=== PATIENT | female | born 1985 | race Caucasian/White ===

== ENCOUNTER 2021-03-11 18:12 | Emergency (ER) | payer MEDICAID ==
[~2021-03-11] VITALS: Ht 160 cm; Wt 95.0 kg
[~2021-03-11 18:12] MED LIST: TRAZ-252 PO; VENL37.55 PO
[2021-03-11 18:40] VITALS: BP 178/94
== END 2021-03-11 19:36 | disposition home or self-care (01) ==
LOC: ER 18:12
DX: U07.1 COVID-19 (principal); R06.82 Tachypnea, not elsewhere classified; R03.0 Elevated blood-pressure reading, without diagnosis of hypertension; K21.9 Gastro-esophageal reflux disease without esophagitis
CPT/HCPCS: 99283; C9803; U0003; U0005

== ENCOUNTER 2021-10-23 13:49 | Emergency (ER) | payer MEDICAID ==
[~2021-10-23] VITALS: Ht 160 cm; Wt 91.0 kg
[2021-10-23 16:52] VITALS: BP 126/64
== END 2021-10-23 17:00 | disposition home or self-care (01) ==
LOC: ER 16:47
DX: H61.21 Impacted cerumen, right ear (principal)
CPT/HCPCS: 99282

== ENCOUNTER 2023-01-03 21:03 | Emergency (ER) | payer MEDICAID ==
[~2023-01-03] VITALS: Ht 160 cm; Wt 95.0 kg
[2023-01-03 21:06] VITALS: BP 147/99; RESP 18; O2SAT 98
[2023-01-03 21:09] VITALS: PULSE 80
[2023-01-03] MEDS ORDERED: ACETAMINOPHEN 325MG TABLET PO ONE (23:15)
[2023-01-03 23:47] VITALS: TEMP 98.3
[2023-01-03 23:59] LABS: BASOPHILS % 0.3 % (0.0-2.0); EOSINOPHILS % 0.4 % (0.0-5.0); HEMOGLOBIN. 12.1 g/dL (12.0-16.0); LYMPHOCYTES % 26.7 % (20.0-50.0); MEAN CORPUSCULAR HEMOGLOBIN 30.3 pg (28.0-32.0); MEAN CORPUSCULAR HGB CONC 33.7 g/dL (31.0-37.0); MEAN PLATELET VOLUME 7.3 fl (7.4-10.4); MONOCYTES % 5.5 % (2.0-8.0); NEUTROPHILS % 67.1 % (40.0-76.0); PLATELET 244 x1000/uL (130-400); WHITE BLOOD COUNT 7.5 x1000/uL (4.5-11.0)
[2023-01-04 00:10] LABS: CHLORIDE 106 mEq/L (98-107); INDEX HEMOLYSI 1 (1-3); INDEX ICTERIC 1 (1-4); INDEX LIPEMIC 1 (1-3); POTASSIUM 3.6 mEq/L (3.5-5.1); SODIUM 139 mEq/L (136-145)
[2023-01-04 00:18] LABS: ACETAMINOPHEN <2 ug/mL ug/mL (10-30); ALANINE AMINOTRANSFERASE 29 IU/L (13-61); ALBUMIN 3.7 g/dL (3.4-5.0); ASPARTATE AMINOTRANSFERASE 16 IU/L (15-37); BILIRUBIN TOTAL 0.4 mg/dL (0.1-1.0); CALCIUM 8.7 mg/dL (8.5-10.1); CARBON DIOXIDE 28 mEq/L (21-32); CREATININE 0.9 mg/dL (0.6-1.3); ETHANOL BLOOD < 10 mg/dL (<10); GLUCOSE 124 mg/dL (70-105); PROTEIN TOTAL 7.2 g/dL (6.0-8.3); UREA NITROGEN BLOOD 12 mg/dL (7-21)
[2023-01-04 00:44] LABS: CLARITY URINE CLOUDY (CLEAR); COLOR URINE DARK YELLOW (YELLOW); GLUCOSE URINE NEGATIVE (NEGATIVE); KETONES URINE NEGATIVE (NEGATIVE); LEUKOCYTE ESTERASE URINE NEGATIVE (NEGATIVE); NITRITE URINE NEGATIVE (NEGATIVE); OCCULT BLOOD URINE NEGATIVE (NEGATIVE); PH URINE 5.5 (4.5-8.0); PROTEIN URINE NEGATIVE (NEGATIVE); SPECIFIC GRAVITY URINE 1.029 (1.005-1.030)
[2023-01-04 00:47] LABS: SQUAMOUS EPITHELIAL CELL URINE 1+ /lpf (RARE/1+); YEAST URINE NONE SEEN
[2023-01-04 00:55] LABS: *AMPHETAMINES SCREEN URINE NEGATIVE (NEGATIVE); *BARBITURATES SCREEN URINE NEGATIVE (NEGATIVE); *BENZODIAZEPINES SCREEN URINE NEGATIVE (NEGATIVE); *COCAINE SCREEN URINE NEGATIVE (NEGATIVE); CANNABINOID URINE SCREEN NEGATIVE (NEGATIVE); ECSTASY MDMA SCREEN URINE NEGATIVE (NEGATIVE); METHADONE URINE SCREEN NEGATIVE (NEGATIVE); OPIATES URINE SCREEN NEGATIVE (NEGATIVE); PHENCYCLIDINE URINE SCREEN NEGATIVE (NEGATIVE)
[2023-01-04 01:24] LABS: RBC URINE 0-2 /hpf (0-2)
[2023-01-04 01:27] LABS: BACTERIA URINE 2+
== END 2023-01-04 15:43 | disposition home or self-care (01) ==
LOC: ER 21:03
DX: R45.851 Suicidal ideations (principal); K21.9 Gastro-esophageal reflux disease without esophagitis; Z98.890 Other specified postprocedural states
CPT/HCPCS: 80053; 80305; 81003; 80307; 80329; 80320; 85025; 36415; 99284; 87426; C9803; G0480

== ENCOUNTER 2024-06-16 14:21 | Emergency (ER) | payer MEDICAID ==
[~2024-06-16] VITALS: Ht 160 cm; Wt 90.7 kg
[~2024-06-16 14:21] MED LIST changes: -VENL37.55 PO; +VENL37.58 PO
[2024-06-16 14:28] VITALS: O2SAT 100
[2024-06-16 17:02] VITALS: BP 132/90; PULSE 74; RESP 18; TEMP 36.8; O2SAT 99
== END 2024-06-16 17:03 | disposition home or self-care (01) ==
LOC: ER 14:21
DX: R10.9 Unspecified abdominal pain (principal); F41.9 Anxiety disorder, unspecified; Z98.890 Other specified postprocedural states; V44.9XXA Unspecified car occupant injured in collision with heavy transport vehicle or bus in traffic accident, initial encounter; Y93.89 Activity, other specified; Y92.89 Other specified places as the place of occurrence of the external cause; Y99.8 Other external cause status
CPT/HCPCS: 99281